=== PATIENT | female | born 1935 | race Caucasian/White ===

== ENCOUNTER 2020-12-02 20:09 | Inpatient (IN) | payer MEDICARE, SELFPAY ==
--- NOTE | ~2020-12-02 | XR_ITS ---
XR chest 2V DATE: 12/02/2020 20:57 INDICATION: Midsternal chest pain TECHNIQUE: PA and lateral views COMPARISON: None FINDINGS: Normal heart size. Coronary artery calcification. There is extensive thoracic aortic and ab dominal aortic calcification. No hilar or mediastinal enlargement. No pulmonary infiltrate or consoli dation, pleural effusion or pulmonary vascular congestion or pneumothorax. There is diffuse osteopenia. There is mild levoscoliosis of the thoracic spine. IMPRESSION: No active cardiopulmonary disease Coronary artery calcification. Extensive thoracic and abdominal aortic atherosclerosis Diffuse osteopenia Reviewed, dictated and finalized at location A. ET RESEARCH ASSISTANT
--- NOTE | 2020-12-02 20:22 | ECG_ITS ---
Measurements Intervals [place] Rate: 108 P: 67 NH: 145 QRS: 71 QRSD: 86 T: 56 QT: 366 QTc: 492 Interpretive Statements SINUS TACHYCARDIA POSSIBLE LEFT ATRIAL ENLARGEMENT LEFT VENTRICULAR HYPERTROPHY AND ST-T CHANGE BORDERLINE ST-T WAVE ABNORMALITY- DIFFUSE LEADS BASELINE WANDER- II, III, AVF, V1, V3, V5-V6 ABNORMAL ECG Electronically Signed On 12-03-2020 6:40:38 [place] RUNNER by Rod Peter D.O.
[2020-12-02 20:23] VITALS: BP 111/96; PULSE 100; PULSE 107; RESP 18; TEMP 36.8; O2SAT 94
--- NOTE | 2020-12-02 20:35 | PC.NURSE ---
patient brought to ED by EMS with CP. given ASA 81mg tabs x 3 by EMS. took ASA 81mg earlier today as home medication. TNG x 1 given by EMS. initially patient denied any change in chest discomfort but now states she is pain free. no previous hx of VA or CAD. arrives to this ED alert and oriented. SL in left hand per EMS. EKG done. on cardiac cath lab technologist. blanket given.
[2020-12-02 20:42] LABS: Basophils Absolute Auto 0.1 K/mm3 (0.0-0.1); Eosinophils Absolute Auto 0.2 K/mm3 (0-0.3); Eosinophils Percent Auto 2.3 % (0-4.4); Hematocrit 42.7 % (37.0-47.0); Hemoglobin 14.6 g/dL (12.0-15.0); Immature Granulocyte Absolute 0.02 K/mm3 (0.00-0.031); Immature Granulocyte Percent A 0.3 % (0-0.5); Lymphocytes Absolute Auto 1.98 K/mm3 (0.9-3.2); Lymphocytes Percent Auto 28.3 % (18.3-44.2); Mean Corpuscular HGB Conc 34.2 g/dl (32-36); Mean Corpuscular Hemoglobin 30.1 pg (26-34); Mean Platelet Volume 9.5 fl (7.4-10.4); Monocytes Absolute Auto 0.3 K/mm3 (0.1-0.6); Monocytes Percent Auto 4.6 % (2.6-8.5); Neutrophils Absolute Auto 4.5 K/mm3 (1.3-6.7); Neutrophils Percent Auto 63.5 % (45.5-73.1); Platelet Count Result 257 k/mm3 (150-375); Red Blood Count 4.85 M/mm3 (4.2-5.4); Red Cell Distribution Width 12.3 % (11.5-14.5)
[2020-12-02 20:50] LABS: INR 0.9; Prothrombin Time 12.6 Seconds (11.1-14.7)
[2020-12-02 20:51] LABS: Partial Thromboplastin Time 27.4 SECONDS (22.3-36.8)
[2020-12-02 20:53] LABS: Alanine Aminotransferase 20 U/L (4-35); Albumin Level 4.4 g/dL (3.5-5.1); Alkaline Phosphatase 82 U/L (38-126); Anion Gap 9 mmol/L (8-16); Aspartate Amino Transferase 29 U/L (14-36); Bilirubin,Total 0.4 mg/dL (0.2-1.3); Blood Urea Nitrogen 14 mg/dL (7-17); Calcium 9.3 mg/dL (8.4-10.2); Carbon Dioxide 26 mmol/L (22-30); Chloride 102 mmol/L (98-107); Estimated CRCL calculation 36 ml/min; Estimated Glomerular Filt Rate > 60; Glucose 152 mg/dL (65-105); Potassium 3.8 mmol/L (3.4-5.0); Sodium 137 mmol/L (137-145)
[2020-12-02 21:07] LABS: Troponin I 0.064 ng/mL (0.000-0.034)
--- NOTE | 2020-12-02 21:42 | ED.GENADULT ---
HPI - General Adult General Chief complaint: Chest Pain Stated complaint: cp Time Seen by Provider: 12/02/20 21:07 History of Present Illness HPI narrative: Patient is a 85-year-old female who presents the emergency department with chief complaint of chest pain and palpitations. Patient states this evening she started having palpitations felt like her heart was beating fast and pounding heavily she also then noticed that she had a tightness feeling in her chest. Patient decided to call EMS she was given aspirin by EMS and also was given a sublingual nitroglycerin. Patient states that after she received the sublingual nitroglycerin her discomfort in her chest resolved. Patient states that at a maximum the pain was a 3 out of 10 and is currently resolved. Review of Systems Review of Systems: Narrative: A 10 system review of systems was completed on the patient and is negative except for what is stated in the HPI. Nursing and ancillary documentation was reviewed. PMFSH Comments Patient has past medical history significant for hypertension Social history the patient denies smoking Exam Narrative: Exam Narrative: GENERAL: Well-appearing, well-nourished, and in no acute distress. HEAD: Normocephalic, atraumatic. EYES: PERRLA and EOMI. ENT: Nares clear, no rhinorrhea or epistaxis. Mucous membranes moist. NECK: Supple. CHEST: Clear to auscultation. No respiratory distress. HEART: Regular rate and rhythm. No murmur heard. Normal peripheral pulses. ABDOMEN: Soft, nontender, nondistended, normal active bowel sounds. EXTREMITIES: Normal range of motion. No edema. SKIN: Warm, dry, no rash. NEURO: No focal deficits. Alert and oriented x3. PSYCH: Normal mood and affect. Course Vital Signs Vital signs: Vital Signs Temperature 36.8 C 12/02/20 20:23 Pulse Rate 100 12/02/20 20:23 Respiratory Rate 18 12/02/20 20:23 Blood Pressure 111/96 H 12/02/20 20:23 Pulse Oximetry 94 12/02/20 20:23 Temperature 36.8 C 12/02/20 20:23 Pulse Rate 107 H 12/02/20 20:23 Respiratory Rate 18 12/02/20 20:23 Blood Pressure 111/96 H 12/02/20 20:23 Pulse Oximetry 94 12/02/20 20:23 Medical Decision Making Vital Signs Vital Signs: Vital Signs Temperature 36.8 C 12/02/20 20:23 Pulse Rate 100 12/02/20 20:23 Respiratory Rate 18 12/02/20 20:23 Blood Pressure 111/96 H 12/02/20 20:23 Pulse Oximetry 94 12/02/20 20:23 Temperature 36.8 C 12/02/20 20:23 Pulse Rate 107 H 12/02/20 20:23 Respiratory Rate 18 12/02/20 20:23 Blood Pressure 111/96 H 12/02/20 20:23 Pulse Oximetry 94 12/02/20 20:23 Lab Data Result diagrams: 12/02/20 20:36 12/02/20 20:36 Labs: Lab Results 12/02/20 12/02/20 12/02/20 Range/Units 20:36 20:36 20:36 WBC 7.0 (4.5-10.0) K/mm3 RBC 4.85 (4.2-5.4) M/mm3 Hgb 14.6 (12.0-15.0) g/dL Hct 42.7 (37.0-47.0) % MCV 88.0 (80-100) fl MCH 30.1 (26-34) pg MCHC 34.2 (32-36) g/dl RDW 12.3 (11.5-14.5) % Plt Count 257 (150-375) k/mm3 MPV 9.5 (7.4-10.4) fl Immature Gran % (Auto) 0.3 (0-0.5) % Neut % (Auto) 63.5 (45.5-73.1) % Lymph % (Auto) 28.3 (18.3-44.2) % [place] % (Auto) 4.6 (2.6-8.5) % Eos % (Auto) 2.3 (0-4.4) % Baso % (Auto) 1.0 (0.2-1.2) % Lymph # (Auto) 1.98 (0.9-3.2) K/mm3 [place] # (Auto) 0.3 (0.1-0.6) K/mm3 Eos # (Auto) 0.2 (0-0.3) K/mm3 Baso # (Auto) 0.1 (0.0-0.1) K/mm3 Abs Immat Gran (auto) 0.02 (0.00-0.031) K/mm3 Absolute Neuts (auto) 4.5 (1.3-6.7) K/mm3 Absolute Nucleated RBC 0.0 (0.0-0.012) K/mm3 Nucleated RBC % 0.0 (0.0-0.2) % PT 12.6 (11.1-14.7) Seconds INR 0.9 APTT 27.4 (22.3-36.8) SECONDS Sodium 137 (137-145) mmol/L Potassium 3.8 (3.4-5.0) mmol/L Chloride 102 (98-107) mmol/L Carbon Dioxide 26 (22-30) mmol/L Anion Gap 9 (8-16) mmol/L BUN 14 (7-17) mg/dL Creatinine 0.80
--- NOTE | 2020-12-02 21:50 | PC.NURSE ---
provider in room. patient aware that her 1st trop is elevated. planning for admission. patient's in room. both updated. BSC in room. patient up with steady gait. back on patient monitor.
--- NOTE | 2020-12-02 22:11 | PC.NURSE ---
hospitalist at bedside. patient is aware of planned admission. on reservationist. pain free. at bedside. waiting for bed assignment.
--- NOTE | 2020-12-02 22:21 | PM.IMHP ---
H&P: HPI History of Present Illness Date/Time: 12/02/20 22:21 Chief Complaint: Chest pain tonight+ Narrative: This is a pleasant 85 year old female with known HTN, peripheral artery disease, and hyperlipidemia presented to the hospital with palpitations and associated chest pain this evening. She has been having palpitations for the past few weeks with associated chest discomfort. She relates that she usually takes an ibuprofen to get rid of the chest discomfort. Today she started to have severe chest pain after she noticed she was experiencing palpitations and the chest pain was only worsening. She described this chest discomfort and midsternal, nonradiating, and heavy in quality. She has no previous history of coronary artery disease. Her chest pain was relieved with nitroglycerin en route to the hospital. She denies any recent fevers, chills, coughing, headache, abdominal pain, nausea, vomiting, dysuria, hematuria, diarrhea, rectal bleeding or LE swelling. She reports that her son had signficant CAD at an early age and has had #5 stents placed in his late 40s. She was found to have mild troponin elevation in the ER tonight but EKG was unremarkable for any ST segment changes. Cardiology has been consulted by ER provider and we have been asked to admit the patient to the hospital tonight for chest pain rule out. Review of Systems Review of Systems: All systems reviewed & are unremarkable except as noted in HPI and below PMFSH Past Medical History Medical History (Updated 12/02/20 @ 22:35 by Hany Leavitt MD) Hyperlipidemia Hypertension Peripheral artery disease Family History Family History (Updated 12/02/20 @ 22:30 by Hany Leavitt MD) Son Heart disease Diabetes mellitus Son Carcinoma of colon Mother Diabetes mellitus Meds Home Medications and Allergies Home Medications Medication Instructions Recorded Confirmed Type alendronate mg PO 12/02/20 12/02/20 History amlodipine 12/02/20 History aspirin 12/02/20 History cilostazol mg 12/02/20 History metoprolol succinate PO 12/02/20 History polyethylene glycol 3350 12/02/20 History rosuvastatin mg 12/02/20 History Allergies Allergy/AdvReac Type Severity Reaction Status Date / Time No Known Allergies Allergy Verified 12/02/20 22:14 Vital Signs Vital Signs - 24 hr 12/02/20 20:23 Temperature 36.8 C Pulse Rate 107 H Respiratory Rate 18 Blood Pressure 111/96 H Pulse Oximetry 94 Exam Const: General: cooperative, healthy appearing, no acute distress, alert and awake Nutritional Appearance: well nourished Orientation/consciousness: patient oriented x3 HENMT: Head: normal to inspection General nose exam: Normal external nose present Face and sinus: normal facial exam Mouth: Yes Normal oral and palatal mucosa present and Yes oropharynx normal Eyes: Pupils: Equal, round and reactive pupils present EOM: EOMs intact bilaterally Neck: Neck: supple and no JVD Thyroid: thyroid normal Lymphatic: lymphadenopathy not noted Chest: Other: No chest wall tenderness w/ palpation Resp: Effort & Inspection: normal respiratory effort Auscultation: clear to auscultation bilaterally Cardio: Rate: regular rate Rhythm: regular rhythm Heart sounds: no murmurs GI: Inspection: normal to inspection Auscultation: normal bowel sounds Skin: General skin exam: normal color and no rashes or lesions noted Neuro: General: patient oriented x3 Cranial nerves: Yes CN's II-XII intact bilaterally and Yes Equal, round and reactive pupils present Speech: normal speech Motor exam (neuro): 5/5 motor strength present throughout Sensory Exam: normal sensation Extrem: General: normal to inspection and no edema Psych: Mental Status: mental status grossly normal Affect: normal affect H&P: Results Labs Labs: Short CBC 12/02/20 12/02/20 Range/Units 20:36 20:36 WBC 7.0 (4.5-10.0) K/mm3 Hgb 14.6 (12.0-15.0) g/dL Hct 4
--- NOTE | 2020-12-02 23:10 | PC.NURSE ---
SBAR completed and faxed to IMU. patient assigned to room 231. patient and updated. given contact number for nurse's station.
--- NOTE | 2020-12-02 23:31 | PC.NURSE ---
attempted to call report. RN not available.
--- NOTE | 2020-12-02 23:35 | PC.NURSE ---
report given to Park SHEA on IMU. will transfer patient to [facility] on nuclear monitoring technician. no change in condition. alert. oriented. no needs prior to transfer.
[2020-12-02 23:52] VITALS: BP 160/89; PULSE 115; RESP 16; TEMP 35.9; O2SAT 97
[2020-12-02 23:53] VITALS: BMI 23.0
[2020-12-03] VITALS (25 sets, daily range): BP systolic 108–133; BP diastolic 59–73; PULSE 83–113; RESP 14–20; TEMP 35.9–36.6; O2SAT 94–99
[2020-12-03 00:12] LABS: Troponin I 0.316 ng/mL (0.000-0.034)
--- NOTE | 2020-12-03 00:55 | ADMIMU ---
This patient, Julieta Sun, was admitted to IMU status, and placed in IMU Room 231-01 on 12/02/20 at 2345. Patient/family oriented to hospital policies and general routines including ID bracelet, bed and alarms, visiting hours, pain management, procedures, bathroom and other care routines, personal items, smoking policy, room service/diet, and visiting hours. Information on how to activate the Rapid Response Team has been discussed. Patient/Family are encouraged to report perceived risks to care and to ask questions if they do not understand what they are told or what they should do.
[2020-12-03] MEDS: amLODIPine BESYLATE 5 MG TABLET 10 MG PO (02:16)
[2020-12-03] MEDS: ENOXAPARIN 80 MG/0.8 ML SYRINGE 63 MG SUB-Q (02:16)
[2020-12-03] MEDS: METOPROLOL SUCCINATE EXT REL 25 MG TABCR PO ×2 (02:17→08:51)
[2020-12-03] MEDS: cilostazoL 100 MG TABLET PO ×3 (02:17→18:49)
[2020-12-03 03:20] LABS: Basophils Absolute Auto 0.1 K/mm3 (0.0-0.1); Eosinophils Absolute Auto 0.1 K/mm3 (0-0.3); Eosinophils Percent Auto 1.7 % (0-4.4); Hematocrit 40.9 % (37.0-47.0); Hemoglobin 13.8 g/dL (12.0-15.0); Immature Granulocyte Absolute 0.03 K/mm3 (0.00-0.031); Immature Granulocyte Percent A 0.5 % (0-0.5); Lymphocytes Absolute Auto 1.72 K/mm3 (0.9-3.2); Lymphocytes Percent Auto 28.4 % (18.3-44.2); Mean Corpuscular HGB Conc 33.7 g/dl (32-36); Mean Corpuscular Hemoglobin 29.8 pg (26-34); Mean Corpuscular Volume 88.3 fl (80-100); Mean Platelet Volume 9.3 fl (7.4-10.4); Monocytes Absolute Auto 0.5 K/mm3 (0.1-0.6); Monocytes Percent Auto 8.1 % (2.6-8.5); Neutrophils Absolute Auto 3.7 K/mm3 (1.3-6.7); Neutrophils Percent Auto 60.3 % (45.5-73.1); Platelet Count Result 234 k/mm3 (150-375); Red Blood Count 4.63 M/mm3 (4.2-5.4); Red Cell Distribution Width 12.3 % (11.5-14.5); White Blood Count 6.1 K/mm3 (4.5-10.0)
[2020-12-03 03:35] LABS: Anion Gap 2 mmol/L (8-16); Blood Urea Nitrogen 11 mg/dL (7-17); Calcium 8.5 mg/dL (8.4-10.2); Carbon Dioxide 29 mmol/L (22-30); Chloride 108 mmol/L (98-107); Estimated CRCL calculation 41 ml/min; Estimated Glomerular Filt Rate > 60; Glucose 111 mg/dL (65-105); Potassium 3.8 mmol/L (3.4-5.0); Sodium 139 mmol/L (137-145)
--- NOTE | 2020-12-03 07:47 | ECG_ITS ---
Measurements Intervals [place] Rate: 87 P: 66 ME: 146 QRS: 31 QRSD: 75 T: 77 QT: 370 QTc: 446 Interpretive Statements SINUS RHYTHM LEFT VENTRICULAR HYPERTROPHY AND ST-T CHANGE BORDERLINE ECG Electronically Signed On 12-03-2020 11:27:22 STRAPPER by Rod Peter D.O.
[2020-12-03] MEDS: ROSUVASTATIN 10 MG TABLET 20 MG PO (08:51)
[2020-12-03] MEDS: ASPIRIN 81 MG ENTERIC TABLET PO (08:51)
--- NOTE | 2020-12-03 09:13 | PM.CNCAR ---
Assessment and Plan Additional Plan 85-year-old woman with: Acute coronary syndrome patient has symptoms of palpitations and some intermittent chest pain now with exertional chest pain for about a week to 10 days. Episode of last night prompted emergency room visit and troponin levels have risen significantly. I will prepared to bring this patient for coronary angiography later today with of course further recommendations to be forthcoming depending on those results. The procedure its details and risks were explained to the patient she is agreeable and somewhat eager to proceed. David Parada MD [facility] History of Present Illness History of Present Illness Consult date/time: 12/03/20 09:13 Consult reason: chest pain Reason For Visit: chest pain elevated troponin Narrative: This is an 85-year-old woman that I am seeing this morning at the request of the hospitalist in the setting of what appears to be non ST-elevation MS. The patient has no history of overt coronary artery disease and states she has been having symptoms of intermittent palpitations associated at times with some chest pain for about a year to year and a half. She has seen a middle school special education teacher up in [place] who prescribed medication for this with some improvement. Over the course of the last week or so she has noticed that with modest physical activity such as walking she will notice the symptoms associated with some pressure-like central chest pain as well. She had an episode of this last night at home at rest and call an ambulance and was brought in to this hospital's emergency room. Nitroglycerin relieved her pain and she feels well this morning. Her biomarkers show that her troponin has risen up to over 4.0. Her electrocardiogram shows some nonspecific inferolateral ST segment changes. She has no other complaints this morning. She feels that at her advanced age she was enjoying a fairly good state of health and is interested in aggressive treatment and evaluation of heart disease. She states that she was referred to a middle school special education teacher last year in [place] to have suspected lower extremity peripheral vascular disease evaluated. I after being seen in the office she was put on medication for this which she says improved somewhat. It looks like she is taking cilostazol. Her other principal medical comorbidities hypertension and dyslipidemia. She has never been a smoker. Review of Systems Constitutional: Constitutional: Reports no additional constitutional complaints Eyes: Eyes: Reports no additional eye complaints ENT: Reports system reviewed and no additional complaints, except as documented Cardiovascular: Cardiovascular: Reports as per HPI Respiratory: Respiratory: Reports as per HPI Gastrointestinal: Gastrointestinal: Reports no additional gastrointestinal complaints Musculoskeletal: Musculoskeletal: Reports no additional musculoskeletal complaints Neurologic: Reports system reviewed and no additional complaints, except as documented Psychiatric: Psychiatric: Reports no additional psychiatric complaints Endocrine: Endocrine: Reports no additional endocrine complaints Hematologic/Lymphatic: Hematologic/Lymphatic: Reports no additional hematologic/lymphatic complaints Allergic/Immunologic: Allergic/Immunologic: Reports no additional allergic/immunologic complaints PMFSH Past Medical History Medical History (Updated 12/02/20 @ 22:35 by Hany Leavitt MD) Hyperlipidemia Hypertension Peripheral artery disease Family History Family History (Updated 12/03/20 @ 00:01 by Park Del Cid RN) Son Diabetes mellitus Heart disease Acute myocardial infarction Hypertension Son Carcinoma of colon Mother Diabetes mellitus Acute myocardial infarction Hypertension Sibling Hypertension Social History Social History Smoking status: Never smoker Second hand tobacco smoke exposure: Yes Alcohol int
--- NOTE | 2020-12-03 12:22 | WPDMODSED ---
Moderate Sedation Note-Pt Data Patient Data Diagnosis: acute coronary syndrome/ non ST elevation [place] Present Complaint: 85-year-old woman somewhat poor historian with symptoms of palpitations off and on for about a year and half admitted to the hospital with chest pain both with and without exertion for the last week to 10 days. Troponin has risen to over 4.0. Nondiagnostic electrocardiographic changes are noted Procedure to be performed/Plan: left heart catheterization Allergies Allergy/AdvReac Type Severity Reaction Status Date / Time No Known Allergies Allergy Verified 12/02/20 22:14 Home Medications Medication Instructions Recorded Confirmed Type alendronate 70 mg PO WEEKLY 12/02/20 12/03/20 History amlodipine 10 mg PO HS 12/02/20 12/03/20 History aspirin 81 mg PO DAILY 12/02/20 12/03/20 History cilostazol 100 mg PO BID 12/02/20 12/03/20 History metoprolol succinate 25 mg PO DAILY 12/02/20 12/03/20 History rosuvastatin 20 mg PO DAILY 12/02/20 12/03/20 History C,E,zinc,copper [id number] 1 cap PO QAM 12/03/20 12/03/20 History [Ocuvite Adult 50 Plus] izvrzikm-mybhgex-[id number]-lutein 1 tablet PO DAILY 12/03/20 12/03/20 History [Centrum Silver Ultra Women's] Current Medications: Active Medications Acetaminophen (Acetaminophen 325 Mg Tablet) 650 mg PO Q4H PRN PRN Reason: Mild Pain (1-3) or Fever Amlodipine Besylate (Amlodipine Besylate 5 Mg Tablet) 10 mg PO [facility] Last Admin: 12/03/20 02:16 Dose: 10 mg Documented by: Aspirin (Aspirin 81 Mg Enteric Tablet) 81 mg PO QAM [facility] Last Admin: 12/03/20 08:51 Dose: 81 mg Documented by: Cilostazol (Cilostazol 100 Mg Tablet) 100 mg PO BID [facility] Last Admin: 12/03/20 08:51 Dose: 100 mg Documented by: Metoprolol Succinate (Metoprolol Succinate Ext Rel 25 Mg Tabcr) 25 mg PO DAILY [facility] Last Admin: 12/03/20 08:51 Dose: 25 mg Documented by: Multivitamins/Minerals (Opti-Gen Tab) 1 tablet PO [facility] Multivitamins/Minerals (Multivitamins /C Lutein (Centrum Silver) Tablet *Bkc) 1 tab PO DAILY [facility] Rosuvastatin Calcium (Rosuvastatin 10 Mg Tablet) 20 mg PO DAILY [facility] Last Admin: 12/03/20 08:51 Dose: 20 mg Documented by: Sedation/Anesthesia: No previous sedation/anesthesia problems (including family history). [facility] Past Medical History Medical History (Updated 12/02/20 @ 22:35 by Hany Leavitt MD) Hyperlipidemia Hypertension Peripheral artery disease Family History Family History (Updated 12/03/20 @ 00:01 by Park Del Cid RN) Son Diabetes mellitus Heart disease Acute myocardial infarction Hypertension Son Carcinoma of colon Mother Diabetes mellitus Acute myocardial infarction Hypertension Sibling Hypertension Social History Social History Smoking status: Never smoker Second hand tobacco smoke exposure: Yes Alcohol intake: never Substance use: never Spiritual care concerns: No Mod Sed Physical Exam Physical Exam Pre Procedural Exam: Normal: Appearance ( pleasant elderly lady no apparent distress), Neck, Throat, Airway, Lungs, Heart Size, Heart Rate, Heart Rhythm and Neuro Exam and Variation: Extremities ( no edema pulses distally are 1/4) Hours since solid foods: 12 Hours since liquid intake: 12 Internal Medicine - PN: Obj Da Vital Signs Vital Signs: Vital Signs - 24 hr 12/02/20 20:23 12/02/20 23:52 12/03/20 00:00 Temperature 36.8 C 35.9 C L Pulse Rate 107 H 115 H 110 H Respiratory Rate 18 16 Blood Pressure 111/96 H 160/89 H Pulse Oximetry 94 97 12/03/20 02:00 12/03/20 02:17 12/03/20 04:00 Temperature 36.6 C Pulse Rate 95 113 H 86 Respiratory Rate 16 Blood Pressure 112/61 Pulse Oximetry 96 12/03/20 06:00 12/03/20 08:00 12/03/20 08:23 Temperature 35.9 C L Pulse Rate 88 91 87 Respiratory Rate 18 Blood Pressure 132/63 Pulse Oximetry 97 12/03/20 08:51 12/03/20 09:54 12/03/20 12:00 Temperature Pulse Rate 95 92
--- NOTE | 2020-12-03 12:57 | WPDCARDPROC ---
Cardiac Cath Procedure Note Date of procedure:: 12/03/20 Performing physician:: David Parada MD Indication:: acute coronary syndrome/ non ST elevation [place] Brief clinical history:: this is an 85-year-old woman not previously known to have coronary disease who has been having intermittent chest pain and palpitations for a long time. Recently this is accelerated and she had a prolonged episode last evening after which she came to the emergency room. Troponin level has risen to over 4.0. ECG shows nondiagnostic ST and T-wave changes. In this setting a left heart catheterization has been recommended. Procedure Procedure performed:: Left ventriculography coronary angiography Sedation/Medication given:: fentanyl 25 mg Versed 2 mg case start time 12:34 p.m. case end time 12:52 p.m. sedation provided by Leonela Madison RN, trained observer Access site:: right femoral artery Estimated blood loss:: 15-20 cc Procedure note:: patient was brought to the cardiac catheterization lab in the postabsorptive state the right femoral triangle was prepared in the usual fashion. Anesthesia was provided% lidocaine infiltrated locally. Using the modified Seldinger technique femoral artery was punctured and a 5 German vascular sheath was placed. After this I used a 5 German angled pigtail catheter to document left-sided hemodynamics and injection LV g in the 30 degree WHEAT projection. After this I used a standard 5 German FL4 catheter to engage inject the left coronary artery and then a 5 German JR4 catheter to engage inject the right coronary artery. The cine angiograms were then reviewed and the case was terminated. The sheath will be removed with manual pressure in the holding area. Procedure was uncomplicated. Findings:: Hemodynamics: Central aortic pressure is 108/35 left ventricle 110 over 0 end-diastolic is 8. No significant gradient upon pullback across the aortic valve. Left ventricle: The LV is normal in size. The base of the inferior wall on looks mildly hypodynamic the remainder of the LV contracts well. The global ejection fraction is 60-65%. the ascending aorta seen on these images is calcified and is enlarged. The angiographic diameter of the ascending aorta is 3.6 cm left main coronary artery is short and free of significant stenosis. The LAD is a significantly calcified artery. The and proximal portion of the LAD is significantly diseased with an eccentric proximal plaque that represents 80-90% stenosis. In some views it appears to be just hazy but in the significantly stenotic and this area of disease extends after the origin of the major diagonal branch. Circumflex is a moderate caliber artery that is mild to moderately calcified. The proximal portion of the circumflex has a subtotal 99% stenosis. This would appear to be the culprit of her presentation. This circumflex disease is also calcified. There is also a 70-80% stenosis in the terminal portion of the circumflex as well as moderate stenosis in the medium size marginal branch. There is a ramus intermedius branch that is medium size that is quite long that is free of significant lesions. Right coronary artery is medium in caliber and is calcified. Appears to be 100% occluded in the 2nd portion with antegrade bridging collaterals providing AAKASH 1 flow distal to this. The distal RPDA are/RPL also receive [id number] collateral filling. Conclusion:: 1. Three-vessel coronary artery disease with eccentric high-grade stenosis in the proximal LAD which is severely calcified. 2. High-grade subtotal stenosis of the proximal circumflex as well as moderate stenosis of the last posterior branch. 3. 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 4. Mild posterior basal hypokinesia overall normal ejection fraction 5. patient appears to be a candid
--- NOTE | 2020-12-03 14:45 | PM.IMPN ---
Progress Note: A&P Assessment and Plan (1) Chest pain: Qualifiers: Chest pain type: unspecified Qualified Code(s): R07.9 - Chest pain, unspecified Code(s): R07.9 - Chest pain, unspecified Status: Acute Assessment and Plan: . ASA therapy. continue beta martínez. Troponin up to 4.2 [address] a[address] suggesting non ST-elevation myocardial infarction.. Nitroglycerin SL for chest pain. Cardiac catheterization today revealed total RCA, critical LDL and circumflex lesions with preserved ventricular function. Deciding about high risks multiple stents versus bypass (2) Elevated troponin: Code(s): R77.8 - Other specified abnormalities of plasma proteins Status: Acute Assessment and Plan: Non ST-elevation myocardial infarction. Plan as above (3) Hypertension: Qualifiers: Hypertension type: unspecified Qualified Code(s): I10 - Essential (primary) hypertension Code(s): I10 - Essential (primary) hypertension Status: Chronic Assessment and Plan: Continue metoprolol. (4) Peripheral artery disease: Code(s): I73.9 - Peripheral vascular disease, unspecified Status: Chronic Assessment and Plan: Continue cilostazol. (5) Hyperlipidemia: Qualifiers: Hyperlipidemia type: unspecified Qualified Code(s): E78.5 - Hyperlipidemia, unspecified Code(s): E78.5 - Hyperlipidemia, unspecified Status: Chronic Assessment and Plan: Continue Crestor. Subjective Date/time seen: 12/03/20 14:45 Interval history: Date of visit 12/03 85-year-old hypertensive female with hyperlipidemia and peripheral vascular disease admitted with palpitations and chest pain. Chest pain has subsided but troponin has risen. EKG some inferior as well as anterior changes. Cardiology saw today and took to the [facility] Exam Narrative: Exam Narrative: Blood pressure 118/66 pulse is 84 and regular sat 95% on room air afebrile Lungs clear CV regular rate rhythm no murmurs Abdomen is soft nontender no masses Extremities without edema feet are warm but cannot palpate dorsalis pedis or posterior tibial Neuro alert pleasant cooperative no focal deficits Objective Data Vital Signs Vital Signs: Vital Signs - 24 hr 12/02/20 20:23 12/02/20 23:52 12/03/20 00:00 Temperature 36.8 C 35.9 C L Pulse Rate 107 H 115 H 110 H Pulse Rate [Bilateral Pedal (Dorsalis Pedis) Palpation] Respiratory Rate 18 16 Blood Pressure 111/96 H 160/89 H Pulse Oximetry 94 97 12/03/20 02:00 12/03/20 02:17 12/03/20 04:00 Temperature 36.6 C Pulse Rate 95 113 H 86 Pulse Rate [Bilateral Pedal (Dorsalis Pedis) Palpation] Respiratory Rate 16 Blood Pressure 112/61 Pulse Oximetry 96 12/03/20 06:00 12/03/20 08:00 12/03/20 08:23 Temperature 35.9 C L Pulse Rate 88 91 87 Pulse Rate [Bilateral Pedal (Dorsalis Pedis) Palpation] Respiratory Rate 18 Blood Pressure 132/63 Pulse Oximetry 97 12/03/20 08:51 12/03/20 09:54 12/03/20 12:00 Temperature Pulse Rate 95 92 92 Pulse Rate [Bilateral Pedal (Dorsalis Pedis) Palpation] Respiratory Rate Blood Pressure Pulse Oximetry 12/03/20 12:37 12/03/20 13:14 12/03/20 13:19 Temperature 36.1 C L Pulse Rate 100 91 90 Pulse Rate [Bilateral Pedal (Dorsalis Pedis) Palpation] Respiratory Rate 20 16 15 Blood Pressure 133/62 123/68 109/67 Pulse Oximetry 97 94 96 12/03/20 13:29 12/03/20 13:39 12/03/20 13:48 Temperature Pulse Rate 88 87 88 Pulse Rate [Bilateral Pedal (Dorsalis Pedis) Palpation] Respiratory Rate 16 17 16 Blood Pressure 116/67 116/68 108/68 Pulse Oximetry 95 96 95 12/03/20 14:15 12/03/20 14:20 Temperature Pulse Rate 85 Pulse Rate [Bilateral Pedal (Dorsalis Pedis) Palpation] 83 Respiratory Rate 16 Blood Pressure 117/66 Pulse Oximetry 95 Intake/Output Intake/Output: Intake & Output 11/30/20 12/01/20 12/02/20 12/03/20 23:59 23:59 23:59 23:59
[2020-12-03] MEDS: SODIUM CHLORIDE 0.9% IV 1,000 ML 125 ML IV CONT (17:04)
[2020-12-03] MEDS: OPTI-GEN TAB 1 TABLET PO (18:49)
[2020-12-03] MEDS: MULTIVITAMINS /C LUTEIN (CENTRUM SILVER) TABLET *BKC 1 TAB PO (18:49)
--- NOTE | 2020-12-03 23:13 | PC.NURSE ---
12/03/20 at 2309 [facility] her to transport patient to [facility] room 1305. Report given to Laisha SHEA.
--- NOTE | 2020-12-04 18:32 | PM.TDS ---
Transfer Discharge Sum: Prov Provider Date of admission: 12/03/20 14:00 Primary care physician: Ruby Haley, Admitting clinician: Hany Leavitt MD Consults: 12/02/20 22:42 Consult to Physician Routine Comment: Consulting Provider: Jose Viera Reason for consultation: chest pain elevated troponin Has provider been notified: Yes DS: Admitting Diagnosis Admitting Diagnosis Admitting Diagnosis: Chest pain DS: Discharge Diagnosis Discharge Diagnosis (1) Chest pain: Qualifiers: Chest pain type: unspecified Qualified Code(s): R07.9 - Chest pain, unspecified Code(s): R07.9 - Chest pain, unspecified Status: Acute Assessment and Plan: . ASA therapy. continue beta martínez. Troponin up to 4.[address]-elevation myocardial infarction.. Nitroglycerin SL for chest pain. Cardiac catheterization today revealed total RCA, critical LDL and circumflex lesions with preserved ventricular function. Transferred to [facility] for evaluation for complicated multiple stent intervention (2) Elevated troponin: Code(s): R77.8 - Other specified abnormalities of plasma proteins Status: Acute Assessment and Plan: Non ST-elevation myocardial infarction. Plan as above (3) Hypertension: Qualifiers: Hypertension type: unspecified Qualified Code(s): I10 - Essential (primary) hypertension Code(s): I10 - Essential (primary) hypertension Status: Chronic Assessment and Plan: Continue metoprolol. Blood pressure well controlled (4) Peripheral artery disease: Code(s): I73.9 - Peripheral vascular disease, unspecified Status: Chronic Assessment and Plan: Continue cilostazol. (5) Hyperlipidemia: Qualifiers: Hyperlipidemia type: unspecified Qualified Code(s): E78.5 - Hyperlipidemia, unspecified Code(s): E78.5 - Hyperlipidemia, unspecified Status: Chronic Assessment and Plan: Continue Crestor. Transfer Discharge Sum: Med Medications Active and Home Medications: Home Medications alendronate 70 mg PO WEEKLY 12/02/20 [History Confirmed 12/03/20] amlodipine 10 mg PO HS 12/02/20 [History Confirmed 12/03/20] aspirin 81 mg PO DAILY 12/02/20 [History Confirmed 12/03/20] cilostazol 100 mg PO BID 12/02/20 [History Confirmed 12/03/20] metoprolol succinate 25 mg PO DAILY 12/02/20 [History Confirmed 12/03/20] rosuvastatin 20 mg PO DAILY 12/02/20 [History Confirmed 12/03/20] C,E,zinc,copper [id number] [Ocuvite Adult 50 Plus] 1 cap PO QAM 12/03/20 [History Confirmed 12/03/20] [id number] [Centrum Silver Ultra Women's] 1 tablet PO DAILY 12/03/20 [History Confirmed 12/03/20] Transfer Discharge Sum: Hosp Hospital Course Hospital course: Juleita Sun is a 85 year old female with known hypertension hyperlipidemia and peripheral vascular disease who presented with palpitations chest discomfort. Nonspecific ST changes inferiorly and anteriorly. Her troponin did rise to 4.2 and Cardiology took her to the [facility] on 12/03 and found 100% occluded RCA with significant occlusions in the LAD and circumflex. Given her age and other vascular issues is felt she probably be a candidate for multiple stent placement. Cardiac service at [facility] was consult and a accepted the patient in transfer. Time Spent with Patient Time attestation: Total time spent providing and/or coordinating transfer services: 35 minutes Exam Narrative: Exam Narrative: Condition at transfer Blood pressure 112/60 pulse is 94 saturating 95% on room air afebrile Lungs clear CV regular rate rhythm Abdomen soft nontender Extremities without edema with no palpable distal pulses Neuro alert pleasant cooperative no focal deficit She was in stable condition not experiencing chest discomfort and transferred to [facility] for evaluation for multiple stent placement versus bypass graft surgery
== END 2020-12-03 23:09 | disposition short-term general hospital (02) | DRG 282 ==
LOC: ANHED 22:02 → ANHIMU 22:56
PROVIDERS: Emergency Medicine; Specialist; Admitting Provider Family Medicine; Emergency Provider Emergency Medicine; PCP Internal Medicine Geriatric Medicine; Visit Provider Internal Medicine
PROC: 4A023N7 Measurement of Cardiac Sampling and Pressure, Left Heart, Percutaneous Approach (ICD-10-PCS; CPT 93452; principal; 2020-12-03 12:00)
DX: I21.4 Non-ST elevation (NSTEMI) myocardial infarction (principal); I25.10 Atherosclerotic heart disease of native coronary artery without angina pectoris; I10 Essential (primary) hypertension; I73.9 Peripheral vascular disease, unspecified; E78.5 Hyperlipidemia, unspecified
CPT/HCPCS: 36415; 71046; 80048; 80053; 84484; 85025; 85610; 85730; 93005; 93458; 96372; 99285; A9270; C1887; C1894; G0378; J1644; J1650; J2250; J3010; J7030; J7040